=== PATIENT | female | born 1985 | race African-American/Black ===

== ENCOUNTER → 2024-02-17 | Emergency (ER) | payer SELFPAY ==
[~2024-02-17] VITALS: Ht 170.2 cm; Wt 73.0 kg
[~2024-02-17] MED LIST: BUPRENORPHINE 8MG SL TABLET SL ONE
[2024-02-17 07:09] VITALS: BP 107/80; PULSE 103; RESP 16; TEMP 98.6; O2SAT 95
[2024-02-17] MEDS: ONDANSETRON 4MG ODT PO ONE (09:35)
== END ==
LOC: ER 07:19
DX: F11.23 Opioid dependence with withdrawal (principal); J45.909 Unspecified asthma, uncomplicated; Z88.8 Allergy status to other drugs, medicaments and biological substances
CPT/HCPCS: 99283; Q0162